=== PATIENT | female | born 1980 | race Caucasian/White ===

== ENCOUNTER 2018-06-10 18:43 | Emergency (ER) | payer OTHER ==
[~2018-06-10] VITALS: Ht 162.6 cm; Wt 164.2 kg
[2018-06-10 19:36] VITALS: BP 166/91
[2018-06-10] MEDS ORDERED: ONDANSETRON ODT 4 MG TAB.RAPDIS. PO ONE (19:45)
[2018-06-10] MEDS ORDERED: oxyCODONE/APAP 7.5/325 1 TAB TABLET PO ONE (19:45)
[2018-06-10] MEDS ORDERED: PROM25TA10 PO (19:48)
[2018-06-10] MEDS ORDERED: HYDR-3164 PO (19:48)
--- NOTE | 2018-06-11 03:39 | PHYS DOC ---
Past Medical History Past Medical History: Anxiety, Depression, Kidney Stone, Pneumonia Past Surgical History: Cholecystectomy, Hysterectomy Additional Information: Pt utilizes vape machine; former cigarette smoker. Alcohol Use: Occasionally Drug Use: None Adult General Chief Complaint Chief Complaint: CHEST WALL PAIN HPI HPI Patient is a 37 year old female who presents with shortness of breath, cough, myalgia and headache. No fever, chills, nausea, vomiting, and sweats. No rash or neck stiffness. Patient and at outside ED 2 days ago and treated for migraine. States headache has been intermittent has persisted. Patient seen by PCP today and diagnosed with pneumonia even shot of antibiotics steroids and Toradol earlier today. Patient states headache persists. Describes retro- orbital orbital throbbing headache radiating to septal region similar to prior migraines. Patient states she is taking migraine headache medication and Aleve with minimal relief. No other acute symptoms or complaints.[] Review of Systems Review of Systems ROS as per HPI. All other systems were reviewed and found to be within normal limits, except as documented in this note. Current Medications Current Medications Current Medications Medications (Trade) Dose Ordered Sig/Maryan Start Time Stop Time Status Last Admin Dose Admin Ondansetron HCl (Zofran Odt) 4 mg 1X ONCE 06/10/18 19:45 06/10/18 20:15 DC 06/10/18 19:47 4 MG Oxycodone/ Acetaminophen (Percocet 7.5/ 325) 2 tab 1X ONCE 06/10/18 19:45 06/10/18 20:15 DC 06/10/18 19:47 2 TAB Allergies Allergies Allergies Coded Allergies Type Severity Reaction Last Updated Verified amoxicillin Allergy Mild Skin Rash 06/10/18 Yes Physical Exam Physical Exam Constitutional: Well developed, well nourished, no acute distress, non-toxic appearance. [] HENT: Normocephalic, atraumatic, bilateral external ears normal, oropharynx moist, no oral exudates, nose normal. [] Eyes: PERRLA, EOMI, conjunctiva normal, no discharge. [] Neck: Normal range of motion, no tenderness, supple. [] Cardiovascular:Heart rate regular rhythm, no murmur. [] Lungs & Thorax: Bilateral breath sounds clear to auscultation. [] Abdomen: Bowel sounds normal, soft, no tenderness. [] Skin: Warm, dry, no erythema. [] Back: No tenderness. [] Extremities: No tenderness, no edema. [] Neurologic: Alert and oriented X 3, normal motor function. [] Psychologic: Affect normal, judgement normal, mood normal. [] Current Patient Data Vital Signs Vital Signs Date Time Temp Pulse Resp B/P (MAP) Pulse Ox O2 Delivery O2 Flow Rate FiO2 06/10/18 19:47 18 96 Room Air 06/10/18 19:36 91 166/91 (116) 06/10/18 18:59 98.1 98.1 EKG EKG [] Radiology/Procedures Radiology/Procedures [] Course & Med Decision Making Course & Med Decision Making Pertinent Labs and Imaging studies reviewed. (See chart for details) [Febrile, nontoxic. No neck pain, fever or rash. Headache improved with treatment. Recommend continue supportive care for migraine-like headache with PCP follow-up.] Dragon Disclaimer Dragon Disclaimer This electronic medical record was generated, in whole or in part, using a voice recognition dictation system. Departure Departure Impression: Primary Impression: Pneumonia Additional Impression: Headache Disposition: 01 HOME, SELF-CARE Condition: GOOD Referrals: ELY RIVAS (PCP) Patient Instructions: Headache, FAQs, Pneumonia, Adult, [id number] Additional Instructions: You were evaluated in the emergency department for headache and nausea. Although the exact cause of your symptoms has not been identified it is possible that the recent diagnosis of pneumonia is contributing to your symptoms. Please increase fluids, continue naproxen for treatment of headache and body aches and take hydrocodone as needed for headache and Phenergan as needed for nausea. Follow-up with your PCP in 2-3 days for reevaluation. Return to the ED if new or worsening symptoms. Scripts Promethazine Hcl (PROMETHAZINE HCL) 25 Mg Tablet 1 TAB PO PRN Q6HRS, #10 TAB Prov: ANTONIO KNIGHT DO 06/10/18 Hydrocodone/Apap 5-325 (NORCO 5-325 TABLET) 1 Each Tablet 1 TAB PO PRN Q6HRS PRN for PAIN, #10 TAB 0 Refills Prov: ANTONIO KNIGHT DO 06/10/18 Problem Qualifiers ANTONIO KNIGHT DO Jun 11, 2018 03:39
== END 2018-06-10 20:00 | disposition home or self-care (01) ==
LOC: ER 18:43
DX: J18.9 Pneumonia, unspecified organism (principal); R51 Headache; G43.909 Migraine, unspecified, not intractable, without status migrainosus; F41.9 Anxiety disorder, unspecified; F32.9 Major depressive disorder, single episode, unspecified; Z87.442 Personal history of urinary calculi; Z87.891 Personal history of nicotine dependence; Z88.1 Allergy status to other antibiotic agents
CPT/HCPCS: 99283; Q0162